=== PATIENT | female | born 1980 | race Caucasian/White ===

== ENCOUNTER 2020-07-14 17:14 | Emergency (ER) | payer OTHER ==
[~2020-07-14] VITALS: Ht 165.1 cm; Wt 59.0 kg
[~2020-07-14 17:14] MED LIST: CLON.1 PO; DULO30 PO; HYDPAM50 PO
[2020-07-14] MEDS ORDERED: Percocet 5-3251 EACH PO (19:59)
[2020-07-14] MEDS ORDERED: AMOCLA875 PO (19:59)
== END 2020-07-14 20:25 | disposition home or self-care (01) ==
LOC: ER 17:14
DX: S62.521B Displaced fracture of distal phalanx of right thumb, initial encounter for open fracture (principal); Z23 Encounter for immunization; W54.0XXA Bitten by dog, initial encounter
CPT/HCPCS: 11010; 73140; 90471; 90714; 96372-59; 99283-25; A9270; J3010